=== PATIENT | female | born 1990 | race Hispanic/Latino ===

== ENCOUNTER 2020-02-01 00:22 | Inpatient (IN) | payer MEDICAID ==
[~2020-02-01] VITALS: Ht 167.6 cm; Wt 120.2 kg
[2020-02-01 00:35] VITALS: BP 147/82
[2020-02-01 00:55] LABS: APPEARANCE,URINE Clear (CLEAR); BILIRUBIN,URINE Negative (NEGATIVE); COLOR,URINE Yellow (YELLOW); GLUCOSE, URINE (UA) 250 mg/dL (NEGATIVE); KETONES,URINE Negative (NEGATIVE); LEUKOCYTE ESTERASE ,URINE Trace (NEGATIVE); NITRATE,URINE Negative (NEGATIVE); OCCULT BLOOD,URINE Negative (NEGATIVE); PH,URINE 6.5 (5.0-8.0); PROTEIN,URINE POS 1+ mg/dL (NEGATIVE)
[2020-02-01 01:17] LABS: BACTERIA,URINE Moderate /HPF (None Seen); RBC,URINE 0-1 /HPF (0-1); SQUAMOUS EPITHELIAL CELL,UR Moderate /HPF (0-2)
[2020-02-01] MEDS ORDERED: LACTATED RINGERS 1000ML 1,000 ML IV PRN (01:34)
[2020-02-01] MEDS ORDERED: MEPERIDINE-PF 50 MG/ML SYG IVP PRN (01:45)
[2020-02-01] MEDS ORDERED: LACTATED RINGERS 500 ML 500 ML IV PRN (01:45)
[2020-02-01] MEDS ORDERED: ROPIVACAINE 0.2% 100ML VIAL 100 ML EP SCH (01:45)
[2020-02-01] MEDS ORDERED: PROMETHAZINE HCL 25 MG/ML 1ML AMPULE IM PRN (01:45)
[2020-02-01] MEDS ORDERED: NALOXONE HCL 0.4 MG/1 ML ML IV PRN (01:45)
[2020-02-01] MEDS ORDERED: EPHEDRINE SULFATE 50 MG/ML AMPULE IVP PRN (01:45)
[2020-02-01 01:53] LABS: HEMATOCRIT 37.2 % (36-48); MEAN CORPUSCULAR HGB CONC 33.1 g/dL (32.0-36.0); MEAN CORPUSCULAR VOLUME 87.7 fL (79-99); RED BLOOD CELL COUNT(AUTO) 4.24 MIL/uL (4.00-5.50); RED CELL DISTRIBUTION WIDTH 14.5 % (11.0-15.5)
[2020-02-01 02:03] LABS: AMPHET/METH SCREEN,URINE NEGATIVE (NEGATIVE); BARBITURATE SCREEN, URINE NEGATIVE (NEGATIVE); BENZODIAZEPINES SCREEN,URINE NEGATIVE (NEGATIVE); CANNABINOID SCREEN,URINE NEGATIVE (NEGATIVE); COCAINE SCREEN,URINE NEGATIVE (NEGATIVE); OPIATE SCREEN,URINE NEGATIVE (NEGATIVE); PHENCYCLIDINE SCREEN,URINE NEGATIVE (NEGATIVE)
[2020-02-01] MEDS ORDERED: OXYTOCIN 10 USP UNITS/ML 20 UNIT in LACTATED RINGERS 1000ML 1,000 ML IV SCH (06:00)
[2020-02-01] MEDS ORDERED: LIDOCAINE HCL 1% 20 ML VIAL ONE (12:04)
[2020-02-01] MEDS ORDERED: MISOPROSTOL 200 MCG TABLET ONE (12:06)
[2020-02-01] MEDS ORDERED: BENZOCAINE/LANOLIN/ALOE VERA 60 ML AEROSOL TP PRN (12:30)
[2020-02-01] MEDS ORDERED: ACETAMINOPHEN-CODEINE 300/30MG TAB PO PRN (12:30)
[2020-02-01] MEDS ORDERED: MEASLES/MUMPS/RUBELLA VACCINE, LIVE 0.5 ML/VIAL SQ PRN (12:30)
[2020-02-01] MEDS ORDERED: DIPH,PERTUSS(ACELL),TET VAC/PF 0.5 ML VIAL IM PRN (12:30)
[2020-02-01] MEDS ORDERED: ACETAMINOPHEN 325 MG TAB PO PRN (12:30)
[2020-02-01] MEDS ORDERED: MISOPROSTOL 200 MCG TABLET VG SCH (12:30)
[2020-02-01] MEDS ORDERED: LANOLIN 30GM OINTMENT TP PRN (12:30)
[2020-02-01] MEDS ORDERED: WITCH HAZEL 1 PAD TP PRN (12:30)
[2020-02-01] MEDS ORDERED: OXYTOCIN-LR 20 UNITS/1000 ML 1,000 ML IV SCH (12:30)
[2020-02-01] MEDS: OXYTOCIN-LR 20 UNITS/1000 ML 1,000 ML IV SCH (13:50)
[2020-02-01] MEDS: IBUPROFEN 600 MG TABLET PO PRN (14:10)
[2020-02-01] MEDS ORDERED: GLYB1.253 PO (14:30)
[2020-02-01] MEDS ORDERED: PREN1TAB80 PO (14:30)
[2020-02-01 14:42] VITALS: BP 133/84
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
[2020-02-01 16:39] VITALS: BP 130/92
[2020-02-01 19:20] VITALS: BP 142/80
[2020-02-01] MEDS: DOCUSATE SODIUM 100 MG CAP PO SCH (20:37)
[2020-02-01 23:18] VITALS: BP 136/69
[2020-02-02] MEDS: OXYTOCIN-LR 20 UNITS/1000 ML 1,000 ML IV SCH (01:45)
[2020-02-02 03:37] VITALS: BP 136/83
[2020-02-02] MEDS: IBUPROFEN 600 MG TABLET PO PRN ×3 (04:25→18:37)
[2020-02-02 07:08] LABS: HEMATOCRIT 33.3 % (36-48); MEAN CORPUSCULAR HEMOGLOBIN 29.4 pg (27.0-33.0); MEAN CORPUSCULAR HGB CONC 32.1 g/dL (32.0-36.0); MEAN CORPUSCULAR VOLUME 91.5 fL (79-99); RED BLOOD CELL COUNT(AUTO) 3.64 MIL/uL (4.00-5.50); RED CELL DISTRIBUTION WIDTH 14.7 % (11.0-15.5); WHITE BLOOD COUNT (AUTO) 12.6 K/uL (4.8-10.8)
[2020-02-02 07:15] LABS: HEPATITIS Bs ANTIGEN SCREEN P Negative (Negative)
[2020-02-02 07:40] VITALS: BP 127/71
[2020-02-02] MEDS: DOCUSATE SODIUM 100 MG CAP PO SCH (09:27)
[2020-02-02 11:38] VITALS: BP 120/90
[2020-02-02 16:17] VITALS: BP 124/71
--- NOTE | 2020-02-02 18:30 | NUR ---
WAS INFORMED BABY WAS DISCHARGED AND DISCHARGE INSTRUCTIONS WERE GIVEN TO PATIENT AT THIS TIME. SCRIPT FOR MOTRIN GIVEN AND PATIENT INSTRUCTED ON DOSAGE AND FREQUENCY OF MEDICATIONS AND VERBALIZED UNDERSTANDING. RE-INFORCED USE OF SITZ BATH AND SERGEY BOTTLE.
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
== END 2020-02-02 18:45 | disposition home or self-care (01) | DRG 560 ==
LOC: EDH 00:22 → LDH 00:23 → OBSVTOIN 00:23 → WSH 14:00
PROVIDERS: ADMIT Obstetrics & Gynecology; ATTEND Obstetrics & Gynecology
PROC: 10E0XZZ Delivery of Products of Conception, External Approach (ICD-10-PCS; principal; 2020-02-01)
PROC: 0KQM0ZZ Repair Perineum Muscle, Open Approach (ICD-10-PCS; 2020-02-01)
PROC: 10907ZC Drainage of Amniotic Fluid, Therapeutic from Products of Conception, Via Natural or Artificial Opening (ICD-10-PCS; 2020-02-01)
PROC: 3E033VJ Introduction of Other Hormone into Peripheral Vein, Percutaneous Approach (ICD-10-PCS; 2020-02-01)
PROC: 3E0R3BZ Introduction of Anesthetic Agent into Spinal Canal, Percutaneous Approach (ICD-10-PCS; 2020-02-01)
PROC: 00HU33Z Insertion of Infusion Device into Spinal Canal, Percutaneous Approach (ICD-10-PCS; 2020-02-01)
PROC: 3E0234Z Introduction of Serum, Toxoid and Vaccine into Muscle, Percutaneous Approach (ICD-10-PCS; 2020-02-01)
PROC: 3E0134Z Introduction of Serum, Toxoid and Vaccine into Subcutaneous Tissue, Percutaneous Approach (ICD-10-PCS; 2020-02-01)
PROC: 3E0334Z Introduction of Serum, Toxoid and Vaccine into Peripheral Vein, Percutaneous Approach (ICD-10-PCS; 2020-02-01)
DX: O99.62 Diseases of the digestive system complicating childbirth (principal); Z37.0 Single live birth; O24.425 Gestational diabetes mellitus in childbirth, controlled by oral hypoglycemic drugs; E66.01 Morbid (severe) obesity due to excess calories; O99.214 Obesity complicating childbirth; O70.1 Second degree perineal laceration during delivery; K21.9 Gastro-esophageal reflux disease without esophagitis; Z67.11 Type A blood, Rh negative; Z3A.38 38 weeks gestation of pregnancy; Z23 Encounter for immunization
CPT/HCPCS: 36415; 80305; 81001; 82947; 83033; 85027; 86592; 86850; 86900; 86901; 87088; 87340; A4314; G0378; J2590; J2791; J2795; J3490; J7120